=== PATIENT | male | born 1975 | race Caucasian/White ===

== ENCOUNTER 2023-03-30 10:40 | Emergency (ER) | payer OTHER ==
[~2023-03-30] VITALS: Ht 175.3 cm; Wt 100.0 kg
[2023-03-30 12:16] VITALS: O2SAT 97
[2023-03-30 12:25] VITALS: BP 136/78; TEMP 98
== END 2023-03-30 12:25 | disposition home or self-care (01) ==
LOC: M ED 10:40 → EDBD 10:40 → M ED 12:25
DX: R68.83 Chills (without fever) (principal); X31.XXXA Exposure to excessive natural cold, initial encounter; V91.89XA Other injury due to other accident to unspecified watercraft, initial encounter